=== PATIENT | female | born 1990 | race Native Hawaiian/Other Pacific Islander ===

== ENCOUNTER 2018-02-06 00:20 | Emergency (ER) | payer OTHER ==
[~2018-02-06] VITALS: Ht 142.2 cm; Wt 45.4 kg
[2018-02-06 00:25] VITALS: TEMP 98.1
[2018-02-06 01:13] LABS: PLATELET COUNT 314 K/uL (152-353)
[2018-02-06 01:58] LABS: POTASSIUM 3.8 mmol/L (3.6-5.2)
[2018-02-06 03:07] VITALS: BP 137/90
== END 2018-02-06 03:08 | disposition home or self-care (01) ==
LOC: ED 00:20
DX: R51 Headache (principal)
CPT/HCPCS: 36415; 80053; 80307; 81000; 85027; 96372; 99283; J1885; J2405

== ENCOUNTER 2018-03-16 01:41 | Emergency (ER) | payer OTHER ==
[~2018-03-16] VITALS: Ht 142.2 cm; Wt 45.4 kg
[2018-03-16 02:00] VITALS: BP 160/99; TEMP 97.9
== END 2018-03-16 02:16 | disposition home or self-care (01) ==
LOC: ED 01:41
DX: R11.2 Nausea with vomiting, unspecified (principal); R19.7 Diarrhea, unspecified; I10 Essential (primary) hypertension; I50.9 Heart failure, unspecified
CPT/HCPCS: 99281